=== PATIENT | female | born 1990 | race African-American/Black ===

== ENCOUNTER 2019-02-13 23:10 | Emergency (ER) | payer OTHER ==
[2019-02-13 23:22] VITALS: BP 128/71
[2019-02-14 00:23] LABS: BILIRUBIN,URINE NEGATIVE (NEGATIVE); GLUCOSE, URINE (UA) NEGATIVE (NEGATIVE); KETONES,URINE (UA) NEGATIVE (NEGATIVE); LEUKOCYTE ESTERASE, URINE NEGATIVE (NEGATIVE); NITRITE,URINE NEGATIVE (NEGATIVE); OCCULT BLOOD,URINE NEGATIVE (NEGATIVE); PROTEIN,URINE NEGATIVE (NEGATIVE); UROBILINOGEN,URINE 0.2 (NORMAL) E.U./dL (NORMAL)
[2019-02-14 00:32] LABS: CLARITY,URINE CLEAR (CLEAR)
--- NOTE | 2019-02-14 00:52 | ED Physician Documentation ---
PD HPI ABD PAIN - Stated complaint Stated Complaint: CRAMPING/17WKS PREG - Chief complaint Chief Complaint: Abd Pain - History obtained from History obtained from: Patient - History of Present Illness Timing - onset: How many weeks ago (3) Timing - duration: Seconds Timing - details: Gradual onset Pain level max: 3 Pain level now: 3 Severity Comments: mild Quality: Cramping Location: Suprapubic Radiation: No: Chest, , Lower back, Left flank Improved by: No: Eating, Laying still, Vomiting Worsened by: No: Eating, Moving, Breathing Associated symptoms: No: Fever, Nausea, Vomiting Review of Systems Ten Systems: 10 systems reviewed and negative Constitutional: reports: Reviewed and negative Eyes: reports: Reviewed and negative Ears: reports: Reviewed and negative Nose: reports: Reviewed and negative Throat: reports: Reviewed and negative Cardiac: reports: Reviewed and negative Respiratory: reports: Reviewed and negative GI: reports: Reviewed and negative : reports: Reviewed and negative Skin: reports: Reviewed and negative Musculoskeletal: reports: Reviewed and negative Neurologic: reports: Reviewed and negative Psychiatric: reports: Reviewed and negative Endocrine: reports: Reviewed and negative Immunocompromised: reports: Reviewed and negative PD PAST MEDICAL HISTORY - Past Medical History Past Medical History: Yes Cardiovascular: None Respiratory: Asthma Neuro: None Endocrine/Autoimmune: None GI: None SHIP SCALER: None : None HEENT: None Psych: None Musculoskeletal: None Derm: None Other Past Medical History: Reviewed and not pertinent - Past Surgical History Past Surgical History: Yes /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 Other past surgical history: Reviewed and not pertinent - Present Medications Home Medications: Ambulatory Orders Medication Instructions Recorded Confirmed Albuterol 2.5 mg INH Q4H PRN 01/20/14 01/20/14 Ondansetron Odt [Zofran] 4 mg TL Q6H PRN #10 tablet 01/20/14 - Allergies Allergies/Adverse Reactions: Allergies Allergy/AdvReac Type Severity Reaction Status Date / Time No Known Drug Allergies Allergy Verified 02/13/19 23:22 - Living Situation Living Situation: reports: With family Living Arrangement: reports: At home - Social History Does the pt smoke?: No Smoking Status: Never smoker Does the pt drink ETOH?: No Does the pt have substance abuse?: No - Family History Family history: reports: Other (Reviewed and not pertinent) - Immunizations Immunizations are current?: Yes - POLST Patient has POLST: No POLST Status: Full Code PD ED PE NORMAL - Vitals Vital signs reviewed: Yes - General General: Alert and oriented X 3, No acute distress - HEENT HEENT: PERRL - Neck Neck: Supple, no meningeal sign - Cardiac Cardiac: RRR, No murmur - Respiratory Respiratory: Clear bilaterally - Abdomen Abdomen: Normal bowel sounds, Soft, Non tender, Non distended - Derm Derm: Warm and dry - Extremities Extremities: No deformity - Neuro Neuro: Alert and oriented X 3 - Psych Psych: Normal mood, Normal affect Results - Vitals Vitals: Vital Signs - 24 hr 02/13/19 02/14/19 23:20 00:16 Temperature 36.6 C Heart Rate 68 Respiratory 17 17 Rate Blood Pressure 128/71 O2 Saturation 100 Oxygen O2 Source Room air - Labs Labs: Laboratory Tests 02/14/19 00:15 Urine Color YELLOW Urine Clarity CLEAR Urine pH 7.0 Ur Specific [place] 1.020 Urine Protein NEGATIVE Urine Glucose (UA) NEGATIVE Urine Ketones NEGATIVE Urine Occult Blood NEGATIVE Urine Nitrite NEGATIVE Urine Bilirubin NEGATIVE Urine Urobilinogen 0.2 (NORMAL) Ur Leukocyte Esterase NEGATIVE Ur Microscopic Review NOT INDICATED Urine Culture Comments NOT INDICATED PD MEDICAL DECISION MAKING - ED course Complexity details: reviewed results, re-evaluated patient, considered differential, d/w patient ED course: 28-year-old female with chronic suprapubic cramping during her . Bedside ultrasound showed normal movements and normal heart tones. Urinalysis unremarkable. Exam unremarkable. Patient discharged with OB follow- up. No clinical indication of acute abdominal pain at this time. Departure - Departure Disposition: 01 Home, Self Care Clinical Impression: Abdominal cramping affecting Instructions: ED Abdominal Pain Unkn Cause, ED Pelvic Pain UKO Follow-Up: LAURA VIRK MD [Primary Care Provider] - Comments: Follow-up with OB within 24 hours. Return with worsening symptoms.
== END 2019-02-14 01:09 | disposition home or self-care (01) ==
LOC: ED 23:10
DX: O26.892 Other specified pregnancy related conditions, second trimester (principal); Z3A.17 17 weeks gestation of pregnancy; R10.30 Lower abdominal pain, unspecified
CPT/HCPCS: 81001; 81003; 87086; 99283

== ENCOUNTER 2020-05-04 19:15 | Emergency (ER) | payer OTHER ==
[2020-05-04 19:40] VITALS: BP 129/80
[2020-05-04] MEDS ORDERED: BUFFERED LIDOCAINE 10 ML SYRINGE SUBQ STA (20:03)
--- NOTE | 2020-05-04 20:03 | ED Physician Documentation ---
PD HPI UPPER EXT INJURY - Stated complaint Stated Complaint: L FINGER LAC - Chief complaint Chief Complaint: Trauma Ext - History obtained from History obtained from: Patient (29-year-old woman who is up-to-date on tetanus cut her left index finger with a box knife at work just prior to arrival. 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 PAD: None : None HEENT: None Psych: None Musculoskeletal: None Derm: None - Past Surgical History Past Surgical History: Yes /BUFFER INFLATED PAD: section HEENT: Myringotomy (tubes) - Present Medications Home Medications: Ambulatory Orders Medication Instructions Recorded Confirmed Albuterol 2.5 mg INH Q4H PRN 01/20/14 05/04/20 - Allergies Allergies/Adverse Reactions: Allergies Allergy/AdvReac Type Severity Reaction Status Date / Time No Known Drug Allergies Allergy Verified 05/04/20 19:33 - Social History Does the pt smoke?: No Smoking Status: Never smoker Does the pt drink ETOH?: No Does the pt have substance abuse?: No - Immunizations Immunizations are current?: Yes Immunizations: TDAP current <10years - POLST Patient has POLST: No POLST Status: Full Code PD ED PE NORMAL - Vitals Vital signs reviewed: Yes - General General: Alert and oriented X 3, No acute distress - Extremities Extremities: Other (There is a curvilinear 2 cm laceration on the palmar side of the left second finger mostly on the pulp but just going a little proximal to the DIP without distal neurovascular compromise) - Neuro Neuro: Alert and oriented X 3, Normal speech Results - Vitals Vitals: Vital Signs - 24 hr 05/04/20 19:31 Temperature 36.8 C Heart Rate 67 Respiratory 16 Rate Blood Pressure 129/80 O2 Saturation 100 Oxygen O2 Source Room air Procedures - Laceration (location) L 2nd finger Length in cm: 3 Wound type: Curved, Flap, Superficial Neurovascular status: Sensory intact, Motor intact, Vascular intact Anesthesia: Lidocaine 1%, With bicarb Wound Preparation: Irrigated copiously NS Skin layer closure: Nylon, Interrupted, Size #-0 - enter number (4-0), Sutures - enter # (11) Other: Patient tolerated well, Tetanus UTD Complexity: Simple Departure - Departure Disposition: 01 Home, Self Care Clinical Impression: Finger laceration Condition: Good Record reviewed to determine appropriate education?: Yes Instructions: ED Laceration Hand Comments: Come back for any signs of infection which would include: Redness, swelling, drainage, increased pain, or fevers. You can wash it soap and water. Keep it covered and moist with bacitracin ointment which is available over the counter; avoid neosporin. Follow-up with your physician in About 14 days for suture removal. Forms: Activity restrictions
[2020-05-04] MEDS ORDERED: HYDROcod/ACET 5/325 Prepack 4 PO STA (20:40)
== END 2020-05-04 20:45 | disposition home or self-care (01) ==
LOC: ED 19:15
DX: S61.211A Laceration without foreign body of left index finger without damage to nail, initial encounter (principal); W26.0XXA Contact with knife, initial encounter; Y99.0 Civilian activity done for income or pay
CPT/HCPCS: 12002; 99282

== ENCOUNTER 2020-07-16 17:19 | Emergency (ER) | payer OTHER ==
[2020-07-16 17:37] VITALS: BP 130/84
[2020-07-16] MEDS ORDERED: BUFFERED LIDOCAINE 10 ML SYRINGE SUBQ STA (18:37)
--- NOTE | 2020-07-16 18:51 | ED Physician Documentation ---
History of Present Illness - Stated complaint Stated Complaint: LT EARLOBE SPLIT - Chief complaint Chief Complaint: Heent - History obtained from History obtained from: Patient, Family - History of Present Illness Timing: Today - Additonal information Additional information: 30-year-old female was removing her earring on her left ear when she went to pull it it pulled apart the skin and tore the earlobe. She is wondering if she can get this fixed now. 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 HEENT: Myringotomy (tubes) - Present Medications Home Medications: Ambulatory Orders Medication Instructions Recorded Confirmed Albuterol 2.5 mg INH Q4H PRN 01/20/05/04/20 - Allergies Allergies/Adverse Reactions: Allergies Allergy/AdvReac Type Severity Reaction Status Date / Time No Known Drug Allergies Allergy Verified 05/04/20 19:33 - Social History Does the pt smoke?: No Smoking Status: Never smoker Does the pt drink ETOH?: No Does the pt have substance abuse?: No - Immunizations Immunizations are current?: Yes Immunizations: TDAP current <10years - POLST Patient has POLST: No POLST Status: Full Code PD ED PE NORMAL - Vitals Vital signs reviewed: Yes (Hypertensive) - General General: Alert and oriented X 3, No acute distress, Well developed/nourished - HEENT HEENT: Atraumatic, PERRL, EOMI, Other - Respiratory Respiratory: No respiratory distress (There are 2 piercings to the left ear the cephalad piercing is torn and the points of connection are small.) - Derm Derm: Normal color, Warm and dry, No rash - Neuro Neuro: Alert and oriented X 3, leather heel breaster 2-12 intact, No motor deficit, No sensory deficit, Normal speech Eye Opening: Spontaneous Motor: Obeys Commands Verbal: Oriented GCS Score: 15 - Psych Psych: Normal mood, Normal affect Results - Vitals Vitals: Vital Signs - 24 hr 07/16/20 17:33 Temperature 97.6 C H Heart Rate 74 Respiratory 16 Rate Blood Pressure 130/84 H O2 Saturation 100 Oxygen O2 Source Room air Procedures - Laceration (location) Left earlobe Length in cm: 1 (2mm each side is all that is left to sew to. ) Wound type: Linear, Clean Neurovascular status: Sensory intact, Motor intact Anesthesia: Lidocaine 1%, With bicarb Wound Preparation: Hibiclens, Irrigated copiously NS, Wound explored, To the base, Other (The edges of the torn area are cut with sharp disection to creat 5mm round connection points.) Skin layer closure: Nylon, Interrupted, Size #-0 - enter number (6-0), Sutures - enter # (4) Other: Patient tolerated well, No complications, Neurovascular intact, Dressing applied, Tetanus UTD Complexity: Intermediate PD MEDICAL DECISION MAKING - ED course Complexity details: considered differential, d/w patient, d/w family ED course: 30-year-old female with a torn earlobe has repair done by cutting way some existing tissue and reapplying to freshly cut surfaces. This provided a cosmetic result that is satisfactory and there is still a hole for the piercing. Departure - Departure Disposition: 01 Home, Self Care Clinical Impression: Laceration of earlobe Qualifiers: Encounter type: initial encounter Laterality: left Qualified Code(s): S01.312A - Laceration without foreign body of left ear, initial encounter Condition: Stable Instructions: ED Laceration Facial Sutr Tape Follow-Up: MARTINA Portillo [Provider Group] Comments: sutures will need to be removed in 5 days. There are 4 sutures.
== END 2020-07-16 19:25 | disposition home or self-care (01) ==
LOC: ED 17:19
DX: S01.312A Laceration without foreign body of left ear, initial encounter (principal); X58.XXXA Exposure to other specified factors, initial encounter; Y93.E8 Activity, other personal hygiene
CPT/HCPCS: 12051

== ENCOUNTER 2021-06-25 02:46 | Outpatient (CLI) | payer OTHER | END 2021-06-25 02:47 | disposition critical access hospital (66) | LOC: EMS 02:46 | DX: R10.9 Unspecified abdominal pain (principal); R19.7 Diarrhea, unspecified | CPT/HCPCS: A0425; A0427 ==

== ENCOUNTER 2021-06-25 03:02 | Emergency (ER) | payer OTHER ==
[2021-06-25 03:21] VITALS: BP 125/74
[2021-06-25] MEDS ORDERED: KETOROLAC 15 MG/ML VIAL IVP STA (03:29)
[2021-06-25] MEDS ORDERED: SODIUM CHLORIDE 0.9% 1,000 ML IV STA (03:29)
[2021-06-25] MEDS ORDERED: METOCLOPRAMIDE 10 MG/2 ML VIAL IVP STA (03:30)
[2021-06-25 03:54] LABS: BASOPHILS % (AUTO) 0.4 %; EOSINOPHILS # (AUTO) 0.3 10^3/uL (0.0-0.7); EOSINOPHILS % (AUTO) 3.4 %; HCT - HEMATOCRIT 35.9 % (37.0-47.0); HGB - HEMOGLOBIN 11.4 g/dL (12.0-16.0); LYMPHOCYTES # (AUTO) 0.7 10^3/uL (1.5-3.5); LYMPHOCYTES % (AUTO) 7.4 %; MEAN CORPUSCULAR HEMOGLOBIN 28.1 pg (27.0-31.0); MEAN CORPUSCULAR HGB CONC 31.8 g/dL (32.0-36.0); MEAN CORPUSCULAR VOLUME 88.4 fL (81.0-99.0); MEAN PLATELET VOLUME 10.2 fL (7.9-10.8); MONOCYTES # (AUTO) 0.2 10^3/uL (0.0-1.0); NEUTROPHILS # (AUTO) 7.7 10^3/uL (1.5-6.6); NEUTROPHILS % (AUTO) 86.5 %; PLT - PLATELET COUNT 223 10^3/uL (130-450); RED BLOOD COUNT 4.06 10^6/uL (4.20-5.40); RED CELL DISTRIBUTION WIDTH 13.6 % (12.0-15.0); WHITE BLOOD COUNT 8.9 x10^3/uL (4.8-10.8)
[2021-06-25 03:54] LABS: BILIRUBIN,URINE NEGATIVE (NEGATIVE); GLUCOSE, URINE (UA) NEGATIVE (NEGATIVE); KETONES,URINE (UA) NEGATIVE (NEGATIVE); LEUKOCYTE ESTERASE, URINE NEGATIVE (NEGATIVE); NITRITE,URINE NEGATIVE (NEGATIVE); OCCULT BLOOD,URINE NEGATIVE (NEGATIVE); PROTEIN,URINE TRACE mg/dL (NEGATIVE); UROBILINOGEN,URINE 2 E.U./dL (NORMAL)
[2021-06-25 04:02] LABS: CLARITY,URINE CLEAR (CLEAR)
[2021-06-25 04:09] LABS: ALBUMIN 4.3 g/dL (3.2-5.5); ALBUMIN/GLOBULIN RATIO 1.8 (1.0-2.2); BILIRUBIN,TOTAL 1.1 mg/dL (0.2-1.0); CALCIUM 9.7 mg/dL (8.5-10.3); CREATININE 0.9 mg/dL (0.4-1.0); POTASSIUM 3.3 mmol/L (3.5-5.0); TOTAL PROTEIN 6.7 g/dL (6.7-8.2)
--- NOTE | 2021-06-25 04:23 | ED Physician Documentation ---
PD HPI ABD PAIN - Stated complaint Stated Complaint: FLANK PX - Chief complaint Chief Complaint: Abd Pain - History obtained from History obtained from: Patient - Additional information Additional information: 31yF previously healthy, Presents with epigastric abdominal pain radiating to the bilateral back, intermittent diarrhea over the past day, and nausea. Pain is currently mild, improved after administration of fentanyl and Zofran via EMS. Patient states She had her Covid vaccine first dose yesterday and afterwards found that she had no appetite at lunch. She then had an episode of diarrhea, with generalized fatigue throughout the day. She had 2 more episodes of diarrhea and then woke in the middle of the night with epigastric pain radiating to the back and called EMS because of this. She also had sensation of need to have diarrhea. Denies sick contacts. Denies fever or vomiting. Denies urinary symptoms. Review of Systems Constitutional: reports: Fatigue. 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 HEENT: Myringotomy (tubes) - Present Medications Home Medications: Ambulatory Orders Medication Instructions Recorded Confirmed Albuterol 2.5 mg INH Q4H PRN 01/20/14 05/04/20 Ketorolac [Toradol] 10 mg PO Q6H PRN #30 tablet 06/25/21 Ondansetron Odt [Zofran Odt] 4 mg TL Q6H PRN #10 tablet 06/25/21 - Allergies Allergies/Adverse Reactions: Allergies Allergy/AdvReac Type Severity Reaction Status Date / Time No Known Drug Allergies Allergy Verified 06/25/21 03:21 - Social History Does the pt smoke?: No Smoking Status: Never smoker Does the pt drink ETOH?: No Does the pt have substance abuse?: No - Immunizations Immunizations are current?: Yes Immunizations: TDAP current <10years - POLST Patient has POLST: No POLST Status: Full Code PD ED PE NORMAL - Vitals Vital signs reviewed: Yes - General General: Alert and oriented X 3, No acute distress, Well developed/nourished - HEENT HEENT: Atraumatic, PERRL, EOMI - Neck Neck: Supple, no meningeal sign - Cardiac Cardiac: RRR - Respiratory Respiratory: No respiratory distress, Clear bilaterally - Abdomen Abdomen: Non tender, Non distended, Other (Discomfort epigastric palpation) - Back Back: No CVA TTP - Derm Derm: Normal color, Warm and dry - Neuro Neuro: Alert and oriented X 3 - Psych Psych: Normal mood, Normal affect Results - Vitals Vitals: Vital Signs - 24 hr 06/25/21 03:08 Temperature 37.1 C Heart Rate 80 Respiratory 16 Rate Blood Pressure 125/74 O2 Saturation 99 Oxygen O2 Source Room air - Labs Labs: Laboratory Tests 06/25/21 06/25/21 06/25/21 03:39 03:48 03:48 WBC 8.9 RBC 4.06 L Hgb 11.4 L Hct 35.9 L MCV 88.4 MCH 28.1 MCHC 31.8 L RDW 13.6 Plt Count 223 MPV 10.2 Neut # (Auto) 7.7 H Lymph # (Auto) 0.7 L [place] # (Auto) 0.2 Eos # (Auto) 0.3 Baso # (Auto) 0.0 Absolute Nucleated RBC 0.00 Nucleated RBC % 0.0 Sodium 140 Potassium 3.3 L Chloride 104 Carbon Dioxide 28 Anion Gap 8.0 BUN 25 H Creatinine 0.9 Estimated GFR (MDRD) 89 Glucose 124 H Calcium 9.7 Total Bilirubin 1.1 H AST 236 H ALT 140 H Alkaline Phosphatase 76 Total Protein 6.7 Albumin 4.3 Globulin 2.4 Albumin/Globulin Ratio 1.8 Lipase 36 Urine Color YELLOW Urine Clarity CLEAR Urine pH 7.0 Ur Specific [place] 1.025 Urine Protein TRACE Urine Glucose (UA) NEGATIVE Urine Ketones NEGATIVE Urine Occult Blood NEGATIVE Urine Nitrite NEGATIVE Urine Bilirubin NEGATIVE Urine Urobilinogen 2 H Ur Leukocyte Esterase NEGATIVE Ur Microscopic Review NOT INDICATED Urine Culture Comments NOT INDICATED PD MEDICAL DECISION MAKING - ED course ED course: 31-year-old woman presents with nausea and diarrhea for the past several hours after getting her Covid first dose. Patient has anemia with hemoglobin of 11.4 and AST ALT 236/140. She states that she's told she has iron deficiency anemia. Symptoms improved with symptomatic care in the emergency room. negative price sign. benign abd exam. asymptomatic upon discharge. strict return precautions given. plan to follow up with primary doctor. Departure - Departure Disposition: 01 Home, Self Care Clinical Impression: Abdominal pain, Nausea, Diarrhea Condition: Good Instructions: ED Diarrhea Viral Prescriptions: Ketorolac [Toradol] 10 mg PO Q6H PRN #30 tablet PRN Reason: Pain Ondansetron Odt [Zofran Odt] 4 mg TL Q6H PRN #10 tablet PRN Reason: Nausea / Vomiting Comments: You were seen in the emergency department for nausea and diarrhea your liver function tests showed inflammation of the liver on blood work. You also have some mild anemia. You should follow-up with your primary doctor once your symptoms resolved to have these tests repeated. Please return to the emergency department immediately if you have any new or worsening symptoms or other concerns.
== END 2021-06-25 05:29 | disposition home or self-care (01) ==
LOC: EDUNIT# → ED 03:02
DX: R10.13 Epigastric pain (principal); R19.7 Diarrhea, unspecified; D64.9 Anemia, unspecified
CPT/HCPCS: 36415; 80053; 81003; 83690; 85025; 96361; 96374; 96375; 99283; 99284; J2765; 0202U; 81001; 87086

== ENCOUNTER 2023-05-24 08:00 | Outpatient (CLI) | payer OTHER ==
[2023-05-24 21:25] LABS: BASOPHILS # (AUTO) 0.1 10^3/uL (0.0-0.1); EOSINOPHILS # (AUTO) 0.3 10^3/uL (0.0-0.7); EOSINOPHILS % (AUTO) 8.9 %; HCT - HEMATOCRIT 36.5 % (37.0-47.0); HGB - HEMOGLOBIN 11.6 g/dL (12.0-16.0); LYMPHOCYTES # (AUTO) 1.1 10^3/uL (1.5-3.5); LYMPHOCYTES % (AUTO) 37.6 %; MEAN CORPUSCULAR HEMOGLOBIN 27.7 pg (27.0-31.0); MEAN CORPUSCULAR HGB CONC 31.8 g/dL (32.0-36.0); MEAN CORPUSCULAR VOLUME 87.1 fL (81.0-99.0); MONOCYTES # (AUTO) 0.2 10^3/uL (0.0-1.0); MONOCYTES % (AUTO) 7.6 %; NEUTROPHILS # (AUTO) 1.3 10^3/uL (1.5-6.6); NEUTROPHILS % (AUTO) 42.6 %; PLT - PLATELET COUNT 305 10^3/uL (130-450); RED BLOOD COUNT 4.19 10^6/uL (4.20-5.40); RED CELL DISTRIBUTION WIDTH 14.7 % (12.0-15.0)
== END 2023-05-24 23:59 | disposition home or self-care (01) ==
LOC: LAB.N 08:00
PROVIDERS: ATTEND Physician Assistant Medical
DX: N92.0 Excessive and frequent menstruation with regular cycle (principal)
CPT/HCPCS: 36415; 84443; 85025